=== PATIENT | male | born 1940 | race Caucasian/White ===

== ENCOUNTER 2020-07-22 09:47 | Day surgery (SDC) | payer MEDICARE, SELFPAY ==
[2020-07-22] VITALS (10 sets, daily range): BP systolic 137–192; BP diastolic 70–95; PULSE 59–103; RESP 16–18; TEMP 36.6–36.8; O2SAT 95–99; BMI 29.2
--- NOTE | 2020-07-22 | IR_ITS ---
APPROVED REPORT Patient Location: [facility] Department Chair: JULIOCESAR Woodard RT (R) PROCEDURES 1. Pocket formation for Permanent Pacemaker Placement. 2. Placement of an atrial sensing and pacing coil into the right atrial appendage. 3. Placement of a ventricular sensing and pacing coil in the right ventricular apex. 4. Permanent Pacemaker Placement. INDICATION Sinus bradycardia Informed consent was obtained prior to the procedure. COMPLICATIONS NONE Estimated Blood Loss: LESS THAN 10 ML TECHNIQUE 1% Lidocaine with epinephrine used to anesthetized the left anterior aspect of the chest. Scalpel was used to make the initial cutaneous incision while electrocautery was used to dissect down tinto the fascia. The fascia was lifted off the pectoralis muscle and digitally manipulated creating a pocket for the pacemaker. The patient was then placed in Trendelenburg position and the subclavian vein was accessed twice via the Selinger technique, there are two wires in the vein. A 6 Czech sheath was placed under fluoroscopic guidance into the subclavian vein over one of the wires while keeping the other wire in place within the subclavian vein. The dilator was removed from the sheath. Using fluoroscopic guidance, the ventricular lead was placed into the right ventricular apex, screwed and secured into place. Electronic interrogation proved acceptable thresholds and voltage within the lead. Using 3-0 silk, the ventricular lead was then secured into place. Lead was secured to the facia using the 3-0 silk. Following this, the sheath was pealed away. An additional 6 Czech fresh sheath and dilator was placed over the existing wire. Using fluoroscopic guidance, the atrial lead was the placed into the right atrial appendage and screwed and secured in place. Electrical interrogation demonstrated acceptable thresholds and voltage number. The atrial lead was then secured into place using 3-0 silk. 1 gram of Ancef was used to flush the pocket. Following the pacemaker generator being secured to the fascia and in place, Monocryl was used to close the subcutaneous layers while jud were used to close the cutaneous layer. A pressure dressing was placed and the patient was transferred to the postop holding area in stable condition for postoperative care. INTERROGATION Generator Model: R2integrated IS-1 L311 Generator Serial No: [id number] RA Lead Model: Ingevity + IS-1 Bi Positive Fix RA/RV 52 cm 7841 RA Lead Serial No: [id number] RV Lead Model: Ingevity + IS-1 Bi Positive Fix RA/RV 59 cm 7842 RA Lead Serial No: [id number] Device Measurements: RA Lead: Intrinsic: 4.0 mV Threshold: 1.8V@0.4ms Impedence: 600 Ohms RV Lead: Intrinsic: 15.0 mV Threshold: 1.0V@0.5ms Impedence: 800 Ohms Parameters: Mode: DDDR Base/Max: 60/130ppm IMPRESSION 1. Successful Pocket formation for Permanent Pacemaker Placement. 2. Successful Placement of an atrial sensing and pacing coil into the right atrial appendage. 3. Successful Placement of a ventricular sensing and pacing coil in the right ventricular apex. 4. Successful Permanent Pacemaker Placement. PLAN 1. Post Op Wound Care. Electronically signed by : Malik Neil, 07/23/2020 11:08:42
[2020-07-22 10:53] LABS: Basophils % 0.3 % (0.1-2.0); Eosinophils # 0.3 K/mm3 (0.0-0.4); Eosinophils % 2.6 % (0.1-12.0); Hematocrit 42.4 % (42.0-52.0); Hemoglobin 14.1 g/dL (14.1-18.0); Lymphocytes # 2.9 K/mm3 (0.7-4.5); Lymphocytes % 24.3 % (10-50); Mean Corpuscular HGB Conc 33.3 g/dL (31.8-35.4); Mean Corpuscular Hemoglobin 33.5 pg (27.0-31.2); Mean Corpuscular Volume 100.5 fl (80-94); Mean Platelet Volume 9.2 fl (7.4-10.4); Monocytes # 0.5 K/mm3 (0.1-1.0); Neutrophils # 8.2 K/mm3 (1.8-7.8); Neutrophils % 68.8 % (37.0-80.0); Platelet Count 259 K/mm3 (142-424); Red Blood Count 4.22 M/mm3 (4.60-6.20); Red Cell Distribution Width 14.8 % (11.5-17.5); White Blood Count 11.9 K/mm3 (4.8-10.8)
[2020-07-22 10:57] LABS: Chloride 100 mmol/L (98-107)
[2020-07-22 10:58] LABS: Sodium 139 mmol/L (136-145)
[2020-07-22 11:01] LABS: Blood Urea Nitrogen 46 mg/dl (9-20); Calcium 9.7 mg/dl (8.4-10.2); Carbon Dioxide 27 mmol/L (22.0-30.0); Creatinine Clearance Estimated 35 mL/min (50-200); Estimated Glomerular Filt Rate 29 ml/min (>60); GFR (African American) 35 ML/MIN (>60); Glucose 104 mg/dl (74-100)
[2020-07-22 11:43] LABS: Coronavirus 19 IgG Antibody Negative (Negative); Coronavirus 19 IgM Antibody Negative (Negative)
--- NOTE | 2020-07-22 11:47 | XR_ITS ---
PROCEDURE: XR CHEST PORTABLE CLINICAL HISTORY: Confirm pacemaker/AID placement COMPARISON: No exams were available for comparison FINDINGS: Mild cardiomegaly without failure. Bipolar pacer is present from left subclavian approach with the leads in good position. No evidence of pneumothorax. No acute bony abnormalities. IMPRESSION: Status post pacemaker placement with good lead position and no evidence of pneumothorax Dictated by: Tien Pagan MD 07/22/2020 14:09 Tien Pagan MD in [facility] 07/22/2020 14:09
--- NOTE | 2020-07-22 11:55 | HMH.ANESCL ---
[facility] Anesthesia Checklist - Patient Identification Patient Identification: Arm Band, Verbal (Name & ) - Structural Data Admitted From: Home Planned Operative Procedure/s: Dual chamber pacemaker placement Consent for Planned Operative Procedure(s) Verified: Yes Verified Documents: Surgical Consent, History and Physical - NPO Status Verified Time NPO: 00:00 - Chart Verification Results Verified: CBC, BMP - Additional verifications Anesthesia Reactions: No - Airway Assessment C-Spine Mobility Assessed: Yes (MP 2, TMD 3, Limited neck ROM) TMJ Mobility Assessed: Yes Dentition: Poor Dentition (Missing teeth) - Neurological Assessment Level of Consciousness: Awake, Alert, Appropriate, Follows Commands Hx Seizures: No Numbness or tingling in extremities: No - Anesthesia Plan Anesthesia Risk discussed: Yes Anesthesia Plan: Verified ASA Class: III Anesthesia Type: MAC [facility] History I have reviewed the patient's past medical history: Yes Medical History: Reports:: Atrial Fibrillation, Coronary Artery Disease, Hyperlipidemia, Hypertension, Renal Disease, Transient Ischemic Attacks (TIA) Denies:: Seizures *Have you ever received a pneumonia vaccine?: Yes *Have you received a flu vaccine this season?: Yes Anesthesia experience/problems:: None Other Surgeries: Yes: Appendectomy, Cardiac Catheterization, Cholecystectomy, Coronary Stent - *Social History Last grade of school completed: High school graduate Smoking Status: Former smoker Alcohol Intake: never Substance Use Type: denies use *Occupational Status:: retired Housing: house Household Members: spouse *Travel in the last 8 weeks: None Family Hx:: Cancer
--- NOTE | 2020-07-22 13:05 | CA_ITS ---
APPROVED REPORT EXAM: Comprehensive 2D, Doppler, and color-flow Echocardiogram Lens Block Gauger: Sofia Tijerina RDCS Ht: 5 ft 11 in Wt: 210lbs BSA: 2.15 BP: 171/80 mmHg Indications: POST PACEMAKER 2D Dimensions LVOT 2.70 cm (M/F) 1.5-2.5 M-Mode Dimensions RVDd 2.45 cm (0.9-2.6) LA Diam 4.03 cm (1.9-4.0) LVDd 6.87 cm (3.5-5.7) Ao Diam 4.21 cm (2.0-3.7) LVDs 5.70 cm (3.5-5.7) IVSd 1.08 cm (0.6-1.1) PWd 1.27 cm (0.6-1.1) EF (Teich) 34.60% FS 17.00% EDV (Teich) 244.80 mL ESV (Teich) 160.00 mL LV Diastology E Decel Time 180.00 (160-240 msec) E/A Ratio 2.7 Mitral Valve MV E Max Nba. 87.00 (40-130 cm/s) MV A Velocity 32.00 (40-130 cm/s) E/A Ratio 2.70 MV Decel. Time 180.00 (160-240 ms) MV PHT 53.00 ms Left Ventricle Left atrium is mildly enlarged, left ventricle is normal size, mild concentric left ventricular hypertrophy, visually estimated ejection fraction 50% with no regional wall motion abnormality, diastolic parameters are inconclusive. Endocardial surfaces are poorly visualized. Right Ventricle Right atrium and right ventricle are mildly enlarged with normal contractility. Aortic Valve Aortic valve is minimally thickened and calcified, there is no aortic stenosis or aortic insufficiency. Mitral Valve Mitral valve leaflets are minimally thickened, there is no mitral stenosis, there is mild mitral regurgitation. Tricuspid Valve Tricuspid valve is grossly normal, there is mild tricuspid regurgitation, tricuspid regurgitation jet velocity is inadequate for calculation of the right ventricular systolic pressure. Pulmonic Valve Pulmonic valve is poorly visualized. Great Vessels Aortic root is normal size. Pericardium No significant pericardial effusion noted. Conclusion 1. Biatrial enlargement, normal left ventricular size, mild concentric left ventricular hypertrophy, visually estimated ejection fraction 50% with no regional wall motion abnormality, diastolic parameters are inconclusive. 2. Mildly enlarged right ventricle with normal contractility. 3. Mild mitral and tricuspid regurgitation. 4. No significant pericardial effusion noted. Electronically signed by : Ihsan Hare, 07/22/2020 19:32:40
== END 2020-07-22 14:37 | disposition home or self-care (01) ==
LOC: CATHLAB 09:53
PROVIDERS: PCP Nurse Practitioner Family; Visit Provider Internal Medicine
DX: I49.5 Sick sinus syndrome (principal); I48.0 Paroxysmal atrial fibrillation; I10 Essential (primary) hypertension; I25.10 Atherosclerotic heart disease of native coronary artery without angina pectoris; Z79.899 Other long term (current) drug therapy
CPT/HCPCS: 33208; 71045; 80048; 85025; 86328; 93306; C1785; C1898

== ENCOUNTER → 2020-12-04 13:10 | Outpatient (CLI) | payer MEDICARE, SELFPAY ==
[2020-12-04 15:41] LABS: Vitamin B12 243 pg/mL (239-931)
[2020-12-04 15:48] LABS: Folate 7.03 ng/mL
== END ==
PROVIDERS: Visit Provider Internal Medicine
DX: E78.2 Mixed hyperlipidemia (principal); G45.9 Transient cerebral ischemic attack, unspecified; I10 Essential (primary) hypertension; I25.10 Atherosclerotic heart disease of native coronary artery without angina pectoris; I48.0 Paroxysmal atrial fibrillation; R00.1 Bradycardia, unspecified; R29.898 Other symptoms and signs involving the musculoskeletal system; R53.83 Other fatigue; Z95.0 Presence of cardiac pacemaker
CPT/HCPCS: 36415; 82607; 82746